=== PATIENT | female | born 1990 | race Caucasian/White ===

== ENCOUNTER 2018-12-31 04:14 | Emergency (ER) | payer MEDICAID ==
[2018-12-31 04:23] VITALS: BP 110/67
[2018-12-31 05:25] LABS: Basophils % (Auto) 0.5 % (0.0-1.8); Eosinophils # (Auto) 0.2 K/mm3 (0.0-0.4); Eosinophils % (Auto) 2.7 % (0.0-4.3); Hematocrit 36.4 % (30.3-42.9); Lymphocytes % (Auto) 21.7 % (13.4-35.0); Mean Corpuscular HGB Conc 33 % (30-34); Mean Corpuscular Volume 83 fl (79-97); Monocytes # (Auto) 0.7 K/mm3 (0.0-0.8); Monocytes % (Auto) 7.4 % (0.0-7.3); Platelet Count 201 K/mm3 (140-440); Red Blood Count 4.39 M/mm3 (3.65-5.03); Red Cell Distribution Width 14.2 % (13.2-15.2)
[2018-12-31 05:37] LABS: Bacteria,Urine 1+ /HPF (Negative); Bilirubin,Urine NEG (Negative); Blood,Urine MOD (Negative); Calcium Oxalate Crystals,Urine 3+; Color,Urine Yellow (Yellow); Mucus,Urine FEW /HPF; Protein,Urine <15 mg/dL mg/dL (Negative)
--- NOTE | 2018-12-31 06:39 | Ultrasound Report ---
PROCEDURE: US OB >= 14 WEEKS FETUS TECHNIQUE: Real-time transabdominal sonography of the uterus, placenta, amniotic fluid, adnexa, and fetus was performed with image documentation. Measurements were obtained to determine age/size. M-mode Doppler was used to document heartbeat. ADDITIONAL GESTATION: None HISTORY: abdominal pain COMPARISONS: None. FINDINGS: MATERNAL: Uterus and cervix: The cervix is closed measures 4 cm in length. Adnexa and ovaries: Not visualized. IUP: Single live intrauterine gestation. Position: Transverse Placental position: Anterior, without previa . Amniotic fluid volume Normal. MIGDALIA was not measured Cardiac activity: Regular rhythm at 156 bpm. ANATOMY: Not evaluated. BIOMETRY: Biparietal diameter: 4.1 cm corresponding to 18 weeks and 3 days. Head circumference: 15.2 cm corresponding to 18 weeks 1 day. abdominal circumference: 13.6 cm corresponding to 19 weeks. Femur length: 2.7 cm corresponding to 19 weeks and 2 days. Ratio biometry: Normal . Estimated Weight: 248 grams +/- grams. ounces +/- .ounces. . percentile. Mean Gestational Age (composite criteria) based on today's measurements: 18 weeks and 3 days. Estimated Due Date (earliest scan): 05/31/2019. IMPRESSION: Single live intrauterine gestation at 18 weeks and 3 days. Estimated due date: 05/31/2019. Limited f etal survey. The amniotic fluid volume is subjectively normal. This document is electronically signed by Ty Palacios MD., December 31 2018 06:36:49 AM ET
--- NOTE | 2018-12-31 08:19 | Emergency Department Report ---
ED Female HPI - General Chief complaint: Abdominal Pain Stated complaint: LOWER ABD PAIN Time Seen by Provider: 12/31/18 08:10 Source: patient Mode of arrival: Ambulatory Limitations: No Limitations - History of Present Illness Initial comments: Patient is 28 years old,non toxic female 5 para 3 with one miscarriage. Patient is 18 weeks . Patient presented to the ER complaining of abdominal pain, crampy in nature started 3 days ago. Patient denied any vaginal bleeding, vaginal discharge. Patient also denied any nausea or vomiting. No fever or chills. Patient stated that she has been diagnosed as UTI by her OB doctor and she is taking antibiotic for it now. MD Complaint: pelvic pain - Related Data Previous Rx's Medication Instructions Recorded Last Taken Type Butalb/Acetamin/Caff 50-325-40 1 tab PO Q6H PRN #20 tablet 10/16/13 01/31/16 Rx [Fioricet] HYDROcodone/APAP 5-325 [[place] 1 each PO Q6HR PRN #20 tablet 02/01/16 Unknown Rx 5/325] Promethazine [Phenergan TAB] 25 mg PO Q6HR PRN #20 tab 02/01/16 Unknown Rx SUMAtriptan succinate [Imitrex] 25 mg PO Q2HR PRN #20 tablet 02/01/16 Unknown Rx Allergies Allergy/AdvReac Type Severity Reaction Status Date / Time bees Allergy Hives Uncoded 08/18/14 21:50 ED Review of Systems ROS: Stated complaint: LOWER ABD PAIN Other details as noted in HPI Comment: All other systems reviewed and negative Constitutional: denies: chills, fever Respiratory: denies: shortness of breath Cardiovascular: denies: chest pain, palpitations Gastrointestinal: abdominal pain. denies: nausea, vomiting, diarrhea, constipation, hematemesis, melena, hematochezia Musculoskeletal: denies: back pain Neurological: denies: headache, weakness ED Past Medical Hx - Past Medical History Previous Medical History?: Yes Hx Headaches / Migraines: Yes - Surgical History Past Surgical History?: Yes Hx Pacemaker: Yes Additional Surgical History: RIGHT BREAST SURGERY - Social History Smoking Status: Never Smoker Substance Use Type: None - Medications Home Medications: Home Medications Medication Instructions Recorded Confirmed Last Taken Type Butalb/Acetamin/Caff 50-325-40 1 tab PO Q6H PRN #20 tablet 10/16/13 02/01/16 01/31/16 Rx [Fioricet] HYDROcodone/APAP 5-325 [[place] 1 each PO Q6HR PRN #20 tablet 02/01/16 Unknown Rx 5/325] Promethazine [Phenergan TAB] 25 mg PO Q6HR PRN #20 tab 02/01/16 Unknown Rx SUMAtriptan succinate [Imitrex] 25 mg PO Q2HR PRN #20 tablet 02/01/16 Unknown Rx ED Physical Exam - General Limitations: No Limitations General appearance: alert, in no apparent distress - Head Head exam: Present: atraumatic, normocephalic, normal inspection - Eye Eye exam: Present: normal appearance - ENT ENT exam: Present: normal exam, normal orophraynx, mucous membranes moist - Neck Neck exam: Present: normal inspection, full ROM. Absent: tenderness, meningismus, lymphadenopathy, thyromegaly - Respiratory Respiratory exam: Present: normal lung sounds bilaterally - Cardiovascular Cardiovascular Exam: Present: regular rate, normal rhythm, normal heart sounds - GI/Abdominal GI/Abdominal exam: Present: soft, normal bowel sounds. Absent: distended, tenderness, guarding, rebound, rigid, organomegaly, mass, bruit, pulsatile mass, hernia - Extremities Exam Extremities exam: Present: normal inspection, full ROM, normal capillary refill - Back Exam Back exam: Present: normal inspection, full ROM. Absent: CVA tenderness (R), CVA tenderness (L) - Neurological Exam Neurological exam: Present: alert, oriented X3, CN II-XII intact, normal gait - Psychiatric Psychiatric exam: Present: normal mood - Skin Skin exam: Present: warm, normal color ED Course Vital Signs 12/31/18 04:22 Temperature 98.0 F Pulse Rate 90 Respiratory 18 Rate Blood Pressure 110/67 O2 Sat by Pulse 100 Oximetry ED Medical Decision Making - Lab Data Result diagrams: 12/31/18 05:06 - Radiology Data Radiology results: report reviewed Referring Physician: ED DOC Patient Name: MELLY BOSE Date of : 1990 Sex: Female Report Date: 2018-12-31 Report Status: Finalized Findings [facility] [address] [place] [address] Ultrasound Report Signed Patient: MELLY BOSE MR#: [id number] : 1990 Acct:[id number] Age/Sex: 28 / F ADM Date: 12/31/18 Loc: ED Attending Dr: Ordering Physician: VENKATESH ARCHULETA MD Date of Service: 12/31/18 Procedure(s): US OB >= 14 weeks Fetus Accession Number(s): [id number] cc: VENKATESH ARCHULETA MD PROCEDURE: US OB >= 14 WEEKS FETUS TECHNIQUE: Real-time transabdominal sonography of the uterus, placenta, amniotic fluid, adnexa, and fetus was performed with image documentation. Measurements were obtained to determine age/size. M-mode Doppler was used to document heartbeat. ADDITIONAL GESTATION: None HISTORY: abdominal pain COMPARISONS: None. FINDINGS: MATERNAL: Uterus and cervix: The cervix is closed measures 4 cm in length. Adnexa and ovaries: Not visualized. IUP: Single live intrauterine gestation. Position: Transverse Placental position: Anterior, without previa . Amniotic fluid volume Normal. MIGDALIA was not measured Cardiac activity: Regular rhythm at 156 bpm. ANATOMY: Not evaluated. BIOMETRY: Biparietal diameter: 4.1 cm corresponding to 18 weeks and 3 days. Head circumference: 15.2 cm corresponding to 18 weeks 1 day. abdominal circumference: 13.6 cm corresponding to 19 weeks. Femur length: 2.7 cm corresponding to 19 weeks and 2 days. Ratio biometry: Normal . Estimated Weight: 248 grams +/- grams. ounces +/- .ounces. . percentile. Mean Gestational Age (composite criteria) based on today's measurements: 18 weeks and 3 days. Estimated Due Date (earliest scan): 05/31/2019. IMPRESSION: Single live intrauterine gestation at 18 weeks and 3 days. Estimated due date: 05/31/2019. Limited survey. The amniotic fluid volume is subjectively normal. This document is electronically signed by Ty Feliciano MD., December 31 2018 06:36:49 AM ET Transcribed By: CO Dictated By: TY FELICIANO MD Electronically Authenticated By: TY FELICINAO MD Signed Date/Time: 12/31/18 0639 DD/ 1 TD/TT: 04/21/19 0613 Critical care attestation.: If time is entered above; I have spent that time in minutes in the direct care of this critically ill patient, excluding procedure time. ED Disposition Clinical Impression: Abdominal pain affecting Disposition: DC-01 TO HOME OR SELFCARE Is pt being admited?: No Condition: Stable Instructions: Abdominal Pain in (ED), Urinary Tract Infection in Women (ED) Referrals: PRIMARY CARE, [Primary Care Provider] - 3-5 Days
== END 2018-12-31 08:48 | disposition home or self-care (01) ==
LOC: ED 04:14
DX: O26.892 Other specified pregnancy related conditions, second trimester (principal); R10.9 Unspecified abdominal pain; R10.2 Pelvic and perineal pain; G43.909 Migraine, unspecified, not intractable, without status migrainosus; Z98.890 Other specified postprocedural states; Z91.030 Bee allergy status; Z3A.18 18 weeks gestation of pregnancy
CPT/HCPCS: 36415; 76805; 81001; 84702; 85025

== ENCOUNTER 2019-01-23 10:09 | Outpatient (CLI) | payer MEDICAID ==
[2019-01-23] MEDS ORDERED: LACTATED RINGERS 500 ML IV ONE (11:12)
== END 2019-01-23 11:50 | disposition still patient (30) ==
LOC: TRG 10:09
PROVIDERS: ATTEND Obstetrics & Gynecology
DX: O47.02 False labor before 37 completed weeks of gestation, second trimester (principal); Z3A.21 21 weeks gestation of pregnancy
CPT/HCPCS: 59025

== ENCOUNTER 2019-01-23 11:58 | Emergency (ER) | payer MEDICAID ==
--- NOTE | 2019-01-23 12:23 | Emergency Department Report ---
Chief Complaint: Dyspnea/Respdistress Stated Complaint: 22WKS/SOB Time Seen by Provider: 01/23/19 12:19 - HPI History of Present Illness: This is a 28 y.o. female that presents to the ER with SOB and cough since last night. Patient is 22 weeks gestation. LMP 08/31/2019, A1 Patient cleared from Labor and delivery [facility]. - Exam Vital Signs: Vital Signs 01/23/19 12:19 Temperature 99.5 F Pulse Rate 102 H Respiratory 18 Rate Blood Pressure 117/73 O2 Sat by Pulse 98 Oximetry MSE screening note: Focused history and physical exam performed. Due to findings the following was ordered: ACC for further evaluation. ED Disposition for MSE Condition: Stable
[2019-01-23] MEDS ORDERED: DUONEB *Not for PRN Use IH ONE ×2 (13:25→17:18)
[2019-01-23 14:31] LABS: Hematocrit 35.4 % (30.3-42.9); Hemoglobin 11.9 gm/dl (10.1-14.3); Mean Corpuscular HGB Conc 34 % (30-34); Mean Corpuscular Volume 83 fl (79-97); Platelet Count 183 K/mm3 (140-440); Red Blood Count 4.25 M/mm3 (3.65-5.03); Red Cell Distribution Width 14.8 % (13.2-15.2)
[2019-01-23 14:54] LABS: BUN/Creatinine Ratio 14; Blood Urea Nitrogen 7 mg/dL (7-17); Calcium 9.1 mg/dL (8.4-10.2); Hemolysis Index 16
[2019-01-23] MEDS ORDERED: TYLENOL PO ONE ×2 (16:40→19:14)
--- NOTE | 2019-01-23 16:57 | Emergency Department Report ---
- General Chief Complaint: Dyspnea/Respdistress Stated Complaint: 22WKS/SOB Time Seen by Provider: 01/23/19 12:19 Source: patient Mode of arrival: Wheelchair Limitations: No Limitations - History of Present Illness Initial Comments: 28-year-old female with history of asthma, 22 weeks , presents to ED with URI symptoms. Patient states since last night, she has had nasal c ongestion, dry cough, wheezing, shortness of breath with exertion. Patient did not use an inhaler prior to coming to the ED. Patient denies pain in lower extremities. Patient denies fever. Reports slight pleuritic chest pain. The patient was seen and cleared by L&D and sent to the ER. MD Complaint: cough, nasal congestion, other (wheezing) -: Last night Severity: moderate Consistency: intermittent Improves With: rest Worsens With: activity Associated Symptoms: rhinorrhea, nasal congestion, cough, chest pain, shortness of breath. denies: fever, chills, headache, nausea, vomiting Treatments Prior to Arrival: none - Related Data Previous Rx's Medication Instructions Recorded Last Taken Type Butalb/Acetamin/Caff 50-325-40 1 tab PO Q6H PRN #20 tablet 10/16/13 01/31/16 Rx [Fioricet] HYDROcodone/APAP 5-325 [[place] 1 each PO Q6HR PRN #20 tablet 02/01/16 Unknown Rx 5/325] Promethazine [Phenergan TAB] 25 mg PO Q6HR PRN #20 tab 02/01/16 Unknown Rx SUMAtriptan succinate [Imitrex] 25 mg PO Q2HR PRN #20 tablet 02/01/16 Unknown Rx ALBUTEROL Inhaler(NF) [VENTOLIN 1 puff IH Q4HR PRN #1 inha 01/23/19 Unknown Rx Inhaler(NF)] Allergies Allergy/AdvReac Type Severity Reaction Status Date / Time shrimp Allergy Unknown Verified 01/23/19 12:01 bees Allergy Intermediate Hives Uncoded 01/23/19 10:12 ED Review of Systems ROS: Stated complaint: 22WKS/SOB Other details as noted in HPI Comment: All other systems reviewed and negative Constitutional: denies: chills, fever ENT: congestion Respiratory: cough, shortness of breath, wheezing Cardiovascular: chest pain Gastrointestinal: denies: abdominal pain Musculoskeletal: other (denies lower extremity pain or swelling) ED Past Medical Hx - Past Medical History Previous Medical History?: Yes Hx Headaches / Migraines: Yes - Surgical History Past Surgical History?: Yes Hx Pacemaker: Yes Additional Surgical History: RIGHT BREAST SURGERY - Social History Smoking Status: Never Smoker Substance Use Type: None - Medications Home Medications: Home Medications Medication Instructions Recorded Confirmed Last Taken Type Butalb/Acetamin/Caff 50-325-40 1 tab PO Q6H PRN #20 tablet 10/16/13 02/01/16 01/31/16 Rx [Fioricet] HYDROcodone/APAP 5-325 [[place] 1 each PO Q6HR PRN #20 tablet 02/01/16 Unknown Rx 5/325] Promethazine [Phenergan TAB] 25 mg PO Q6HR PRN #20 tab 02/01/16 Unknown Rx SUMAtriptan succinate [Imitrex] 25 mg PO Q2HR PRN #20 tablet 02/01/16 Unknown Rx ALBUTEROL Inhaler(NF) [VENTOLIN 1 puff IH Q4HR PRN #1 inha 01/23/19 Unknown Rx Inhaler(NF)] ED Physical Exam - General Limitations: No Limitations ED Course Vital Signs 01/23/19 01/23/19 01/23/19 12:19 16:50 17:30 Temperature 99.5 F 99.2 F Pulse Rate 102 H 118 H 124 H Respiratory 18 16 16 Rate Blood Pressure 117/73 Blood Pressure 116/71 101/71 [Left] O2 Sat by Pulse 98 96 96 Oximetry 01/23/19 01/23/19 01/23/19 18:30 18:58 19:46 Temperature 100.1 F H Pulse Rate 128 H Respiratory 16 Rate Blood Pressure Blood Pressure 97/64 [Left] O2 Sat by Pulse 100 97 Oximetry 01/23/19 01/23/19 01/23/19 19:53 21:01 21:15 Temperature 98.4 F Pulse Rate 129 H 118 H 122 H Respiratory 15 22 20 Rate Blood Pressure 109/63 109/63 Blood Pressure 108/65 [Left] O2 Sat by Pulse 98 96 96 Oximetry 01/23/19 01/23/19 01/23/19 21:45 22:00 22:25 Temperature 98.1 F Pulse Rate 118 H 119 H 108 H Respiratory 29 H 24 18 Rate Blood Pressure 109/63 110/72 Blood Pressure 109/75 [Left] O2 Sat by Pulse 97 99 Oximetry ED Medical Decision Making - Lab Data Result diagrams: 01/23/19 14:14 01/23/19 14:14 - EKG Data -: EKG Interpreted by Me EKG shows normal: sinus rhythm, axis, intervals, QRS complexes, ST-T waves Rate: tachycardia (rate 123) - EKG Data Interpretation: no acute changes - Radiology Data Radiology results: report reviewed, image reviewed - Medical Decision Making 28 yo F, 22wks , with pleuritic chest pain and SOB. Pt reports wheezing, congestion also. Due to state, D-dimer was ordered to r/o PE . D-dimer was elevated. Risks and benefits of CTA Chest explained to patient. Pt agreed to CT. CTA negative for PE. Albuterol treatment given, pt felt much better afterward. Pt also with low-grade temp after CTA was done. Tylenol was given. No infiltrates seen on xray or CT. Likely viral URI w/ asthma exacerbation. Pt tachycardia likely due to combination of fever and albuterol. Improved with IV fluid bolus. Will d/c home with inhaler. Outpt f/u advised. - Differential Diagnosis URI, asthma, pneumonia, PE Critical care attestation.: If time is entered above; I have spent that time in minutes in the direct care of this critically ill patient, excluding procedure time. ED Disposition Clinical Impression: URI (upper respiratory infection), Asthma with acute exacerbation Disposition: TO HOME OR SELFCARE Is pt being admited?: No Condition: Stable Instructions: Asthma (ED), Upper Respiratory Infection (ED) Prescriptions: ALBUTEROL Inhaler(NF) [VENTOLIN Inhaler(NF)] 1 puff IH Q4HR PRN #1 inha PRN Reason: Wheezing Referrals: VANIA MOSER MD [Primary Care Provider] - 3-5 Days PRIMARY CARE, [Referring] - 3-5 Days Time of Disposition: 20:27
--- NOTE | 2019-01-23 17:35 | XRay Report ---
PROCEDURE: XR CHEST 1V AP TECHNIQUE: Chest radiograph single view. HISTORY: cough COMPARISONS: None . FINDINGS: Heart: Normal. Mediastinum/Vessels: Normal. Lungs/Pleural space: Normal. Bony thorax: No acute osseous abnormality. Life support devices: None. IMPRESSION: No acute cardiopulmonary abnormality. This document is electronically signed by Everett Taylor MD., Jan 23 2019 05:33:59 PM ET
[2019-01-23 18:19] LABS: INR 1.03 (0.87-1.13); Partial Thromboplastin Time 26.8 Sec. (24.2-36.6)
--- NOTE | 2019-01-23 20:08 | Cat Scan Report ---
PROCEDURE: CT angiogram chest with contrast. TECHNIQUE: Computerized tomographic angiography of the chest was performed after the IV injection of iodinated nonionic contrast including image processing. The image data was postprocessed using 2-di mensional multiplanar reformatted (MPR) and 3-dimensional (MIP and/or volume rendered) techniques. Au tomated exposure control, adjustment of mA and/or kV according to patient size, or iterative reconstr uction dose optimization techniques were utilized. CT DOSE LENGTH PRODUCT: 623 mGycm HISTORY: Shortness of breath COMPARISONS: None. FINDINGS: The trachea and central bronchi appear normal. The lungs are clear and well expanded. There are no si gns of pneumonia. There are no pleural effusions. The thoracic aorta has a normal caliber without rosanna dence of dissection. The pulmonary arteries enhance normally. There is no evidence of pulmonary embol ism. There is no mediastinal adenopathy. The heart size is normal. The adrenal glands are not enlarge d. The thoracic skeleton appears intact. IMPRESSION: Normal study. This document is electronically signed by Arnel Langley MD., Jan 23 2019 08:06:36 PM ET
[2019-01-23] MEDS ORDERED: NACL 0.9% 1000 ML 1,000 ML IV ONE (20:56)
[2019-01-23 22:27] VITALS: BP 109/75
== END 2019-01-23 22:25 | disposition home or self-care (01) ==
LOC: ED 11:58
DX: O99.512 Diseases of the respiratory system complicating pregnancy, second trimester (principal); J45.901 Unspecified asthma with (acute) exacerbation; J06.9 Acute upper respiratory infection, unspecified; G43.909 Migraine, unspecified, not intractable, without status migrainosus; Z3A.22 22 weeks gestation of pregnancy; Z95.0 Presence of cardiac pacemaker; Z91.030 Bee allergy status; Z91.013 Allergy to seafood
CPT/HCPCS: 36415; 71045; 71275; 80048; 85027; 85379; 85610; 85730; 93005; 93010; 94640; 99285; J7030; Q9967; 59025

== ENCOUNTER 2019-05-25 22:42 | Outpatient (CLI) | payer MEDICAID ==
[2019-05-25 23:00] VITALS: BP 125/69
--- NOTE | 2019-05-26 00:58 | Ultrasound Report ---
Limited OB ultrasound INDICATION: Vaginal bleeding, FINDINGS: There is a single intrauterine . Fetus is in a cephalic presentation. Amniotic fluid index i s 13.1 cm. The placenta is located anteriorly. The placenta is grade 2. There is no previa or abrupti on identified. IMPRESSION: No previa or abruption is identified. Amniotic fluid index is normal. Biophysical profile INDICATION: Vaginal bleeding, FINDINGS: Biophysical profile score is 8 out of 8. There is a score of 2 for breathing movement, score of 2 for movement, score of 2 for fet al posture and tone, and a score of 2 for qualitative amniotic fluid volume. heart rate is 165 bpm. IMPRESSION: Biophysical profile score is 8 out of 8. Signer Name: Familia Calles MD Signed: 05/26/2019 12:54 AM Workstation Name: [id number]
[2019-05-26 02:00] LABS: Bilirubin,Urine NEG (Negative); Blood,Urine SM (Negative); Color,Urine Straw (Yellow); Mucus,Urine FEW /HPF; Protein,Urine <15 mg/dL mg/dL (Negative); Urobilinogen,Urine < 2.0 mg/dL (<2.0)
--- NOTE | 2019-05-26 15:55 | Progress Note ---
Assessment and Plan A: at 39 2/7 weeks gestation. Not in active labor. Reactive NST and BPP 8/8 with normal MIGDALIA. No signs of abruption or previa on US. No active vaginal bleeding noted. Probable vaginal spotting from membrane stripping done at office. P: Patient discharged home with labor precautions and instructions to count movements daily. Warning signs discussed with pt. Rest at home and return promptly if any problems or signs of labor. Subjective - Subjective Date of service: 05/25/19 Principal diagnosis: at 39 2/7 weeks Interval history: 28 year old presents at 39 2/7 weeks with complaint of vaginal spotting after having her membranes stripped in the office yesterday. Patient states the spotting has been light and mixed with mucous; she denies any active vaginal bleeding. Patient denies leaking of water. Patient reports active movement. Patient denies falls or abdominal trauma. Patient denies abdominal pain. Irregular contractions are noted on EFM but patient states she does not feel them; contractions palpate mild and uterus palpates soft between contractions. Patient reports: movement normal, no loss of fluid Objective - Exam Narrative Exam: SSE performed: no pooling, no bleeding. Small amount of off white vaginal discharge with pink-tinged mucous noted on speculum. SVE 3.5/50/- 3/posterior/firm. MIGDALIA 13.1. BPP 8/8. NST reactive. US shows no sign of previa or abruption. Abdomen: Present: normal appearance, soft. Absent: distention, tenderness, guarding, rigidity FHR: category 1 Uterine Contraction Monitor Mode: External Cervical Dilatation: 3.5 Cervical Effacement Percentage: 50 station: -3 Uterine Contraction Pattern: Irregular Uterine Contraction Intensity: Mild Extremities: normal - Labs Labs: Laboratory Results - last 24 hr 05/26/19 01:20 Urine Color Straw Urine Turbidity Clear Urine pH 7.0 Ur Specific [place] 1.004 Urine Protein <15 mg/dl Urine Glucose (UA) Neg Urine Ketones Neg Urine Blood Sm Urine Nitrite Neg Urine Bilirubin Neg Urine Urobilinogen < 2.0 Ur Leukocyte Esterase Tr Urine WBC (Auto) 1.0 Urine RBC (Auto) 1.0 U Epithel Cells (Auto) 3.0 Urine Mucus Few
== END 2019-05-26 02:00 | disposition home or self-care (01) ==
LOC: TRG 22:42
PROVIDERS: ATTEND Obstetrics & Gynecology
DX: O46.93 Antepartum hemorrhage, unspecified, third trimester (principal); Z3A.39 39 weeks gestation of pregnancy
CPT/HCPCS: 59025; 76815; 76819; 81001

== ENCOUNTER 2019-05-27 10:45 | Inpatient (IN) | payer MEDICAID ==
[2019-05-27] MEDS ORDERED: BRETHINE SUB-Q PRN (11:30)
[2019-05-27] MEDS ORDERED: XYLOCAINE 2% INFILTRATI ONE (11:30)
[2019-05-27] MEDS ORDERED: AMPICILLIN/NS 2 GM/100 ML 2 GM/100 ML BAG IV ONE (11:35)
[2019-05-27] MEDS ORDERED: SUBLIMAZE IV PRN (11:35)
--- NOTE | 2019-05-27 11:47 | History and Physical Report ---
History of Present Illness Date of examination: 05/27/19 Date of admission: 05/27/19 Chief complaint: Contractions History of present illness: 28 year old presents with complaint of regular contractions. Denies LOF or VB. Reports active movement. Patient received care at [facility] and was able to view records on computer. LMP 08/31/18. EDC 05/29/19 (based on 8 week, 6 day US). significant for the following: vitamin D deficiency (supplemented with Vitamin D3), GBS positive (GBS bacteriuria), elevated 1 hour sugar test (normal 3 hour OGTT), fundal height high for dates (saw APA and EFW 56th percentile on US). labs are as follows: O+, antibody screen negative, rubella immune, hepatitis B surface antigen negative, HIV negative, RPR nonreactive, HSV 2 negative, varicella immune, hemoglobin electrophoresis normal, elevated 1 hour sugar test (normal 3 hour OGTT), GC negative, CT negative, GBS positive. Past History Past Medical History: asthma (not symptomatic, not on medications), other (history of seizure disorder in the distant past, no current medications, no seizures during ) Past Surgical History: other (arm surgery) [employer] History: denies: abnormal PAP smear, chlamydia, gonorrhea, hepatitis B, hepatitis C, herpes, HIV, syphilis, trichomonas Family/Genetic History: none Social history: lives with family, full code. denies: smoking, alcohol abuse, prescription drug abuse, IV drug use - Obstetrical History Expected Date of Delivery: 05/29/19 Actual Gestation: 39 Week(s) 5 Day(s) : 5 Para: 3 Hx # Term Pregnancies: 3 Number of Pregnancies: 0 Spontaneous Abortions: 1 Induced : 0 Number of Living Children: 3 Medications and Allergies Allergies Allergy/AdvReac Type Severity Reaction Status Date / Time shrimp Allergy Unknown Verified 01/23/19 12:01 bees Allergy Intermediate Hives Uncoded 01/23/19 10:12 Home Medications Medication Instructions Recorded Confirmed Last Taken Type Butalb/Acetamin/Caff 50-325-40 1 tab PO Q6H PRN #20 tablet 10/16/13 02/01/16 01/31/16 Rx [Fioricet] HYDROcodone/APAP 5-325 [[place] 1 each PO Q6HR PRN #20 tablet 02/01/16 Unknown Rx 5/325] Promethazine [Phenergan TAB] 25 mg PO Q6HR PRN #20 tab 02/01/16 Unknown Rx SUMAtriptan succinate [Imitrex] 25 mg PO Q2HR PRN #20 tablet 02/01/16 Unknown Rx ALBUTEROL Inhaler(NF) [VENTOLIN 1 puff IH Q4HR PRN #1 inha 01/23/19 Unknown Rx Inhaler(NF)] Active Meds: Active Medications Ephedrine Sulfate (Ephedrine Sulfate) 10 mg IV Q2M PRN PRN Reason: Hypotension Fentanyl (Sublimaze) 100 mcg IV Q2H PRN PRN Reason: Labor Pain Oxytocin/Sodium Chloride (Pitocin/Ns 20 Unit/1000ml Drip) 20 units in 1,000 mls @ 125 mls/hr IV DIRECT HEATH Lactated Ringer's (Lactated Ringers) 1,000 mls @ 125 mls/hr IV DIRECT HEATH Ampicillin Sodium (Ampicillin/Ns 2 Gm/100 Ml) 2 gm in 100 mls @ 100 mls/hr IV ONCE ONE; Protocol Stop: 05/27/19 12:34 Ampicillin Sodium (Ampicillin/Ns 1 Gm/50 Ml) 1 gm in 50 mls @ 100 mls/hr IV Q4HR HEATH; Protocol Terbutaline Sulfate (Brethine) 0.25 mg SUB-Q ONCE PRN PRN Reason: Hyperstimulation/Hypertonicity Review of Systems All systems: negative (contractions) - Vital Signs Vital signs: Vital Signs Pulse BP 106 H 114/64 05/27/19 11:08 05/27/19 11:08 Temp Pulse Resp BP Pulse Ox 106 H 114/64 05/27/19 11:08 05/27/19 11:08 - Physical Exam Cardiovascular: Regular rate, Normal S1, Normal S2 Lungs: Positive: Clear to auscultation Abdomen: Positive: normal appearance, soft. Negative: distention, tenderness, guarding, rigidity Genitourinary (Female): Positive: normal external genitalia, normal perenium. Negative: perineal/vulvar lesions (no lesions seen on careful exam with bright light upon admission) Vagina: Positive: normal moisture Uterus: Positive: enlarged (s=d) Anus/Rectum: Positive: normal perianal skin Extremities: Positive: normal - Obstetrical FHR: category 1 Uterine Contraction Monitor Mode: External Cervical Dilatation: 7 Cervical Effacement Percentage: 100 station: -1 Uterine Contraction Pattern: Regular Uterine Contraction Intensity: Moderate Results Result Diagrams: 05/27/19 11:40 All other labs normal. Assessment and Plan A: at 39 weeks, 5 days gestation. GBS positive. Active labor. P: Admit. GBS prophylaxis. Continuous EFM. Anticipate vaginal .
[2019-05-27 12:00] LABS: Hematocrit 38.3 % (30.3-42.9); Hemoglobin 12.9 gm/dl (10.1-14.3); Mean Corpuscular HGB Conc 34 % (30-34); Mean Corpuscular Volume 84 fl (79-97); Platelet Count 189 K/mm3 (140-440); Red Blood Count 4.56 M/mm3 (3.65-5.03); Red Cell Distribution Width 15.6 % (13.2-15.2)
[2019-05-27] MEDS ORDERED: PITOCin/NS 20 UNIT/1000ML DRIP 20 UNITS/1,000 ML BAG IV SCH (12:00)
[2019-05-27] MEDS: LACTATED RINGERS 1,000 ML IV SCH ×3 (12:10→15:14)
[2019-05-27] MEDS ORDERED: NARCAN 2 MG/2 ML IV PRN (13:50)
--- NOTE | 2019-05-27 13:57 | Anesthesia Consultation ---
Anesthesia Consult and Med Hx Date of service: 05/27/19 - Airway Anesthetic Teeth Evaluation: Good ROM Head & Neck: Adequate Mental/Hyoid Distance: Adequate Mallampati Class: Class II Intubation Access Assessment: Probably Good - Pulmonary Exam CTA: Yes - Cardiac Exam Cardiac Exam: RRR - Pre-Operative Health Status ASA Pre-Surgery Classification: ASA2 Proposed Anesthetic Plan: Epidural - Pulmonary Hx Asthma: Yes (doesnt use meds, last attack 01/28) Hx Respiratory Symptoms: No SOB: No COPD: No Home Oxygen Therapy: No Hx Pneumonia: No Hx Sleep Apnea: No - Cardiovascular System Hx Hypertension: No Hx Coronary Artery Disease: No Hx Heart Attack/AMI: No Hx Angina: No Hx Percutaneous Transluminal Coronary Angioplasty (PTCA): No Hx Cardia Arrhythmia: No Hx Pacemaker: No Hx Internal Defibrillator: No Hx Valvular Heart Disease: No Hx Heart Murmur: No Hx Peripheral Vascular Disease: No - Central Nervous System Hx Neuromuscular Disorder: No Hx Seizures: Yes (last one 11 years) CVA: No Hx Back Pain: No Hx Psychiatric Problems: No - Gastrointestinal Hx Ulcer: No Hx Gastroesophageal Reflux Disease: No - Endocrine Hx Renal Disease: No Hx End Stage Renal Disease: No Hx Cirrhosis: No Hx Liver Disease: No Hx Insulin Dependent Diabetes: No Hx Non-Insulin Dependent Diabetes: No Hx Thyroid Disease: No Hx Hypothyroidism: No Hx Hyperthyroidism: No - Hematic Hx Anemia: No Hx Sickle Cell Disease: No - Other Systems Hx Alcohol Use: No Hx Substance Use: No Hx Cancer: No Hx Obesity: Yes (BMI 33)
[2019-05-27] MEDS ORDERED: fentaNYL-BUPIV 2 MCG/ML-0.125% 200 MCG/100 ML BAG EPIDURAL SCH (14:00)
[2019-05-27] MEDS ORDERED: METHERGINE IM ONE (14:38)
[2019-05-27] MEDS ORDERED: AMPICILLIN/NS 1 GM/50 ML 1 GM/50 ML BAG IV SCH (15:42)
--- NOTE | 2019-05-27 15:57 | Event Note ---
Date: 05/27/19 Francisco Javier [id number]/-1/BBOW.
[2019-05-27] MEDS ORDERED: TYLENOL PO ONE (17:00)
[2019-05-27] MEDS ORDERED: MILK OF MAGNESIA PO PRN (18:33)
[2019-05-27] MEDS ORDERED: TUCKS PAD TP PRN (18:33)
[2019-05-27] MEDS ORDERED: NORCO 5/325 PO PRN (18:33)
[2019-05-27] MEDS ORDERED: LANSINOH TP PRN (18:33)
[2019-05-27] MEDS ORDERED: SODIUM CHLORIDE FLUSH SYRINGE 10 ML IV NR (19:00)
--- NOTE | 2019-05-27 19:06 | Procedure Note ---
OB Delivery Note - Delivery Date of Delivery: 05/27/19 Surgeon: MANISH CHAVES Estimated blood loss: other (250 cc) - Vaginal Delivery presentation: vertex Delivery position: OA Intrapartum events: meconium Delivery induction: none Delivery monitor: external FHT, external uterine Route of delivery: Delivery placenta: spontaneous Delivery cord: 3 umbilical vessels Episiotomy: none Delivery laceration: 1st degree Delivery repair: vicryl Anesthesia: epidural Delivery comments: Spontaneous vaginal delivery at 18:03 of liveborn male weighing 9 lb. 3 oz. over first degree perineal laceration with apgars of 8/9. Meconium stained amniotic fluid. NICU attended delivery due to meconium. Baby was vigorous and cried immediately after . Baby was placed on mom's chest right away and dried and bulb suctioned. 3 vessel cord double clamped and cut after cessation of pulsation. Cord blood obtained. Spontaneous delivery of intact placenta and membranes by lambert mechanism. EBL 250 cc. Pitocin to IV fluids after delivery of placenta. Fundus firm and midline. First degree perineal laceration repaired with 2-0 vicryl. No other lacerations noted. Vaginal sweep negative. Sponge count correct. Mother and baby stable.
[2019-05-28] MEDS: IBUPROFEN PO SCH ×3 (00:34→18:22)
[2019-05-28 08:25] LABS: Hematocrit 31.3 % (30.3-42.9); Hemoglobin 10.7 gm/dl (10.1-14.3)
--- NOTE | 2019-05-28 10:09 | Progress Note ---
Assessment and Plan - Patient Problems (1) Status post normal vaginal delivery Current Visit: Yes Status: Acute Plan to address problem: PPD 1 - unstable with right calf pain Continue routine orders Anticipate discharge in 24 hours if DVT ruled/out (2) Right calf pain Current Visit: Yes Status: Acute Plan to address problem: Venous doppler ordered stat Subjective - Subjective Date of service: 05/28/19 Principal diagnosis: PPD #1; s/p Interval history: see H&P, Event Note and OB Delivery Procedure Note Patient reports: appetite normal, voiding normally, pain well controlled, ambulating normally, other (c/o right leg numbness initially and later pain in her right calf.), no dizzy ambulation : doing well, nursing well Objective - Vital Signs Latest vital signs: Vital Signs Temp Pulse Resp BP BP Pulse Ox 05/28/19 08:20 98.6 F 80 18 99/60 05/28/19 04:56 98.0 F 77 16 116/61 97 05/27/19 23:47 98.3 F 76 16 106/46 98 05/27/19 22:26 98.1 F 78 18 110/69 97 05/27/19 21:27 86 100/61 05/27/19 21:12 75 118/61 05/27/19 20:57 63 119/67 05/27/19 20:27 93 H 121/63 05/27/19 20:19 67 125/57 05/27/19 19:57 63 120/75 05/27/19 19:42 86 122/61 05/27/19 19:27 78 130/63 05/27/19 19:12 87 126/61 05/27/19 19:09 98.1 F 75 18 118/60 99 05/27/19 19:07 73 118/60 99 05/27/19 18:57 84 123/70 05/27/19 18:42 92 H 129/69 05/27/19 18:33 54 L 78 L 05/27/19 18:30 93 H 100 05/27/19 18:27 89 117/66 05/27/19 18:25 111 H 80 L 05/27/19 18:20 77 100 05/27/19 18:15 89 100 05/27/19 18:12 78 121/65 05/27/19 18:10 83 99 05/27/19 18:05 104 H 99 05/27/19 18:01 107 H 93 05/27/19 17:59 94 H 100 05/27/19 17:58 89 140/71 05/27/19 17:56 26 L 75 L 05/27/19 17:54 80 100 05/27/19 17:49 80 100 05/27/19 17:45 75 100 05/27/19 17:43 81 130/72 05/27/19 17:40 87 100 05/27/19 17:35 73 100 05/27/19 17:30 82 100 05/27/19 17:29 95 H 140/88 05/27/19 17:25 102 H 100 05/27/19 17:19 91 H 100 05/27/19 17:15 78 100 05/27/19 17:13 94 H 123/76 05/27/19 17:09 96 H 99 05/27/19 17:05 95 H 100 05/27/19 17:00 89 100 05/27/19 16:57 83 118/75 05/27/19 16:54 83 100 05/27/19 16:50 88 100 05/27/19 16:45 98 H 100 05/27/19 16:44 91 H 118/75 05/27/19 16:40 87 100 05/27/19 16:35 96 H 100 05/27/19 16:30 100 H 100 05/27/19 16:27 95 H 119/72 05/27/19 16:25 102 H 100 05/27/19 16:20 94 H 100 05/27/19 16:15 92 H 100 05/27/19 16:12 91 H 123/79 05/27/19 16:10 102 H 100 05/27/19 16:07 98.1 F 17 05/27/19 16:05 92 H 100 05/27/19 16:00 85 100 05/27/19 15:58 83 118/65 05/27/19 15:55 89 100 05/27/19 15:54 82 125/75 05/27/19 15:50 95 H 100 05/27/19 15:45 84 100 05/27/19 15:44 94 H 142/106 05/27/19 15:40 89 100 05/27/19 15:35 82 100 05/27/19 15:30 85 100 05/27/19 15:28 79 127/83 05/27/19 15:25 85 100 05/27/19 15:20 93 H 100 05/27/19 15:15 87 100 05/27/19 15:13 75 125/80 05/27/19 15:10 85 100 05/27/19 15:05 83 100 05/27/19 15:00 82 100 05/27/19 14:58 74 128/79 05/27/19 14:55 72 100 05/27/19 14:51 78 94 05/27/19 14:50 70 100 05/27/19 14:45 79 100 05/27/19 14:42 70 116/64 05/27/19 14:40 70 100 05/27/19 14:35 75 100 05/27/19 14:30 75 99 05/27/19 14:28 71 110/62 05/27/19 14:25 74 100 05/27/19 14:20 74 100 05/27/19 14:15 76 100 05/27/19 14:13 72 110/57 05/27/19 14:10 88 100 05/27/19 14:05 82 100 05/27/19 14:00 73 100 05/27/19 13:58 81 108/59 05/27/19 13:55 89 100 05/27/19 13:50 82 100 05/27/19 13:45 80 100 05/27/19 13:41 83 114/57 05/27/19 13:40 99 H 100 05/27/19 13:39 93 H 117/52 05/27/19 13:37 98 H 110/58 05/27/19 13:35 90 109/58 100 05/27/19 13:31 96 H 153/55 05/27/19 13:29 97 H 123/66 100 05/27/19 13:27 106 H 118/75 05/27/19 13:25 111 H 118/73 100 05/27/19 13:23 86 111/63 05/27/19 13:21 100 H 118/61 05/27/19 13:20 98 H 100 05/27/19 13:19 96 H 113/71 05/27/19 13:17 66 105/66 05/27/19 13:15 74 100 05/27/19 13:10 81 100 05/27/19 13:05 98 H 100 05/27/19 12:19 98.2 F 16 05/27/19 11:08 106 H 114/64 Intake and Output 05/27/19 05/28/19 05/28/19 23:59 07:59 15:59 Intake Total 120 Output Total 700 Balance -700 120 Intake: Oral 120 Output: Urine 700 Uretheral (Lopez) 700 Other: Total, Intake Amount 120 # Voids Void 500 Estimated Blood Loss 250 - Exam Cardiovascular: Present: Regular rate Lungs: Present: Clear to auscultation Abdomen: Present: normal appearance, soft Vulva: both: normal Uterus: Present: normal, firm, fundal height at umbilicus Extremities: Present: normal Comments: - positive Homans' Sigs - Scant lochia - Labs Labs: Abnormal lab results 05/27/19 Range/Units 11:40 WBC 11.4 H (4.5-11.0) K/mm3 RDW 15.6 H (13.2-15.2) %
--- NOTE | 2019-05-28 12:04 | Vascular Lab Report ---
DUPLEX DOPPLER LOWER EXTREMITY VEINS, RIGHT INDICATION: Right Calf pain, +Mady's Sign, 1-day . TECHNIQUE: Duplex doppler imaging was performed through the veins of the right lower extremity using venous compression and other maneuvers. COMPARISON: No relevant prior imaging study available. FINDINGS: Right Common femoral vein: Negative. Right Superficial femoral vein: Negative. Right Popliteal vein: Negative. Right Calf veins: Negative. Additional findings: None.. IMPRESSION: No sonographic evidence for DVT in the right lower extremity. Signer Name: Adrian Das Jr, MD Signed: 05/28/2019 12:00 PM Workstation Name: [id number]
[2019-05-29] MEDS: IBUPROFEN PO SCH (00:27)
--- NOTE | 2019-05-29 09:51 | Progress Note ---
Assessment and Plan - Patient Problems (1) Status post normal vaginal delivery Current Visit: Yes Status: Acute Plan to address problem: D/C home today Schedule appt with office for pre-op visit for BTL F/U at office in 6 wks for regular PP visit (2) Right calf pain Current Visit: Yes Status: Acute Plan to address problem: Pain has improved Ambulating without difficulty Negative doppler study, no DVT noted Subjective - Subjective Date of service: 05/29/19 Principal diagnosis: PPD #2; s/p Interval history: See admission H & P, OB delivery summary, and PP progress notes Patient reports: appetite normal, voiding normally, pain well controlled, flatus, ambulating normally [place]: doing well, bottle feeding (and ) Objective - Vital Signs Latest vital signs: Vital Signs Temp Pulse Resp BP 05/29/19 07:35 98.1 F 79 18 92/51 05/29/19 00:00 98.7 F 68 18 114/78 05/28/19 16:46 97.9 F 73 18 98/62 Intake and Output 05/28/19 05/29/19 05/29/19 23:59 07:59 15:59 Intake Total 980 480 Balance 980 480 Intake: Oral 680 480 Intake, Free Water 300 Other: Total, Intake Amount 240 480 # Voids Void 1 - Exam Breasts: Present: normal Cardiovascular: Present: Regular rate Lungs: Present: Normal air movement Abdomen: Present: soft, normal bowel sounds Uterus: Present: firm, fundal height below umbilicus (U-1) Extremities: Present: normal Deep Tendon Reflex Grade: Normal +2 Incision: Present: other (1st degree laceration, healing as expected)
--- NOTE | 2019-05-29 09:58 | Discharge Summary ---
Providers - Providers Date of Admission: 05/27/19 11:51 Date of discharge: 05/29/19 Attending physician: CHERYLE HOLDEN MD Primary care physician: GEENA MCDUFFIE MD Hospitalization Reason for admission: active labor, IUP at term Delivery: Episiotomy: none Laceration: 1st degree (healing as expected) Other procedures: none complications: none Discharge diagnosis: other (S/P ) [place] baby: male Pertinent studies: Negative DVT doppler study Hospital course: See admission H & P, OB delivery summary, and PP progress notes Condition at discharge: Good Disposition: DC-01 TO HOME OR SELFCARE - Discharge Diagnoses (1) Status post normal vaginal delivery Status: Acute (2) Right calf pain Status: Acute Plan - Provider Discharge Summary Activity: routine, no sex for 6 weeks, no heavy lifting 4 weeks, no strenuous exercise Diet: other (Iron rich diet) Instructions: routine Additional instructions: [] Smoking cessation referral if applicable(refer to patient education folder for contact #) [] Refer to [facility] Booklet Call your doctor immediately for: * Fever > 100.5 * Heavy vaginal bleeding ( >1 pad per hour) * Severe persistent headache * Shortness of breath * Reddened, hot, painful area to leg or breast * Drainage or odor from incision. * Keep laceration site clean and dry at all times and follow doctor's instructions regarding bathing/showering - Follow up plan Follow up: GEENA MCDUFFIE MD [Primary Care Provider] - 7 Days
[2019-05-29 14:32] VITALS: BP 115/57
== END 2019-05-29 14:00 | disposition home or self-care (01) | DRG 775 ==
LOC: TRG 10:45 → LD 11:51 → OB 23:15
PROVIDERS: ADMIT Obstetrics & Gynecology; ATTEND Obstetrics & Gynecology
PROC: 10E0XZZ Delivery of Products of Conception, External Approach (ICD-10-PCS; principal; 2019-05-27)
PROC: 0HQ9XZZ Repair Perineum Skin, External Approach (ICD-10-PCS; 2019-05-27)
PROC: 3E0R3BZ Introduction of Anesthetic Agent into Spinal Canal, Percutaneous Approach (ICD-10-PCS; 2019-05-27)
PROC: 00HU33Z Insertion of Infusion Device into Spinal Canal, Percutaneous Approach (ICD-10-PCS; 2019-05-27)
DX: O99.824 Streptococcus B carrier state complicating childbirth (principal); O99.354 Diseases of the nervous system complicating childbirth; O99.52 Diseases of the respiratory system complicating childbirth; O99.214 Obesity complicating childbirth; E66.9 Obesity, unspecified; O77.0 Labor and delivery complicated by meconium in amniotic fluid; O70.0 First degree perineal laceration during delivery; J45.909 Unspecified asthma, uncomplicated; G40.909 Epilepsy, unspecified, not intractable, without status epilepticus; M79.661 Pain in right lower leg; Z3A.39 39 weeks gestation of pregnancy; Z37.0 Single live birth
CPT/HCPCS: 36415; 85014; 85018; 85027; 86850; 86900; 86901; G0378; J0290; J2210; J2590; J3010; J7120

== ENCOUNTER 2020-10-17 10:29 | Day surgery (SDC) | payer MEDICAID ==
--- NOTE | 2020-10-13 12:39 | History and Physical Report ---
History of Present Illness Date of examination: 10/17/20 History of present illness: PT is a 30 yo who desires sterilization. No other issues. PT with h/o epilepsy but no recent seizures. PT is on an epilepsy med but cannot recall the name. BTL papers signed 05/07/20 Past History Past Medical History: asthma, seizure, migraines Past Surgical History: other (arm surgery) Social history: no significant social history - Obstetrical History : 6 Para: 5 Spontaneous Abortions: 1 Number of Living Children: 5 Medications and Allergies Allergies Allergy/AdvReac Type Severity Reaction Status Date / Time shrimp Allergy Angioedema, Verified 10/13/20 15:16 SOB bees Allergy Intermediate Hives Uncoded 10/13/20 15:16 Home Medications Medication Instructions Recorded Confirmed Last Taken Type Albuterol Sulfate [Proventil Hfa] 2 puff IH Q4H PRN 10/13/20 10/13/20 Unknown History Zonisamide 100 mg PO HS 10/13/20 10/13/20 Unknown History Review of Systems All systems: negative (except HPI) - Physical Exam Cardiovascular: Regular rate, No murmurs Lungs: Positive: Clear to auscultation, Normal air movement Abdomen: Positive: normal appearance. Negative: tenderness Genitourinary (Female): Positive: other (deferred to the OR) Results All other labs normal. Assessment and Plan - Patient Problems (1) Sterilization Current Visit: No Status: Acute Plan to address problem: PT is for Lap BTL on 10/17/20. PT fully consented for surgery including the approximately 11/999 risk of BTL failure. PT understands and accepts this. Patient fully consented for the surgery. Risks, benefits, and alternatives were all discussed with the patient including risk of bleeding, infection, and potent ial for injury. Patient understands and accepts these risks. Patient agrees to proceed with surgery. All questions were answered.
[~2020-10-17 10:29] MED LIST: ACETAMINOPHEN 500 MG TAB PO SCH; CELECOXIB 200 MG CAP PO NR; GABAPENTIN 300 MG CAP PO NR; LACTATED RINGERS 1,000 ML IV SCH; MIDAZOLAM 2 MG/2 ML INJ IV NR
[2020-10-17] MEDS ORDERED: BUPIVACAINE/PF (0.5%) 5 MG/1 ML 30 ML VIAL INFILTRATI ONE ×2 (10:58→13:02)
[2020-10-17] MEDS ORDERED: ONDANSETRON 4 MG/2 ML INJ IV PRN (11:29)
--- NOTE | 2020-10-17 11:29 | Anesthesia Consultation ---
Anesthesia Consult and Med Hx Date of service: 10/17/20 - Airway Anesthetic Teeth Evaluation: Good ROM Head & Neck: Adequate Mental/Hyoid Distance: Adequate Mallampati Class: Class I Intubation Access Assessment: Good - Pulmonary Exam CTA: Yes - Cardiac Exam Cardiac Exam: RRR - Pre-Operative Health Status ASA Pre-Surgery Classification: ASA2 Proposed Anesthetic Plan: General - Pulmonary Hx Smoking: No Hx Asthma: Yes (Last albuterol 2018) Hx Respiratory Symptoms: No - Cardiovascular System Hx Hypertension: No - Central Nervous System Hx Seizures: Yes (last seizure 1mo ago; took scheduled anti-seziure med last night) - Endocrine Hx Renal Disease: No Hx Liver Disease: No Hx Insulin Dependent Diabetes: No Hx Non-Insulin Dependent Diabetes: No Hx Thyroid Disease: No - Additional Comments Anesthesia Medical History Comments: Reports possible hx of awareness under anesthesia with previous surgery though unclear if this was GA or MAC.
--- NOTE | 2020-10-17 11:29 | Anesthesia Day of Surgery ---
Anesthesia Day of Surgery - Day of Surgery Patient Examined: Yes Patient H&P Reviewed: Yes Patient is NPO: Yes
[2020-10-17] MEDS ORDERED: LIDOCAINE PF 100 MG/5 ML (CARDIAC SYRINGE) IV ONE (11:33)
[2020-10-17] MEDS ORDERED: dexAMETHasone 20 MG/5 ML VIAL ONE (11:33)
[2020-10-17] MEDS ORDERED: fentaNYL 250 MCG/5 ML INJ ONE (11:33)
[2020-10-17] MEDS ORDERED: ROCURONIUM 50 MG/5 ML INJ IV ONE (11:33)
[2020-10-17] MEDS ORDERED: ONDANSETRON 4 MG/2 ML INJ ONE (11:33)
[2020-10-17] MEDS ORDERED: KETAMINE/STERILE WATER 50 MG/ML SYRINGE ONE (11:34)
[2020-10-17] MEDS ORDERED: propofoL 200 MG/20 ML VIAL IV ONE (11:34)
[2020-10-17] MEDS ORDERED: NEOSTIGMINE 10MG/10 ML INJ MDV ONE (12:58)
[2020-10-17] MEDS ORDERED: GLYCOPYRROLATE 0.4 MG/2 ML INJ ONE (12:58)
[2020-10-17] MEDS ORDERED: SODIUM CHLORIDE 0.9% IRR 1,500 ML BOTTLE IR ONE (13:02)
--- NOTE | 2020-10-17 13:10 | Post Operative Note ---
Date of procedure: 10/17/20 Pre-op diagnosis: Sterilization Post-op diagnosis: same Findings: Normal uterus, tubes, ovaries. General abdominal/pelvic survey was within normal limits. Procedure: Indication: 30-year-old desires sterilization. Procedure: Laparoscopic bilateral tubal ligation. Patient taken the operating room and prepped and draped in usual fashion. Attention was first turned vaginally where single-tooth tenaculum was applied to the anterior lip of the cervix and an acorn uterine manipulator was placed. Attention was now turned abdominally where a 5 mm incision was made in the umbilicus. Veres needle then placed in the abdominal cavity. The abdomen was appropriately insufflated with CO2 gas. Veres needle removed and the 5 mm trocar was placed in abdominal cavity. Placement confirmed with the camera. Attention was turned suprapubically where an 8 mm incision was made and the 8 mm trocar was placed suprapubically in the midline under direct visualization. Trocar placed successfully and without difficulty. Attention was first turned to assess in the abdomen and pelvis. Findings noted above. Attention turned to the tubal ligation where a Filshie clip was applied to each tube. Each clip encompassed the full width of the tube on each side and good hemostasis was noted afterwards on both sides. At this point the abdomen was fully desufflated. Trochars were removed. Trocar sites were closed with 4-0 Vicryl in a subcuticular fashion followed by Marcaine. The acorn uterine manipulator and single-tooth tenaculum were removed. Procedure concluded at this point. Patient tolerated the procedure well. All instrument lap counts were correct. Patient taken to the recovery room in stable condition. Anesthesia: GETA Surgeon: RICHARD MIR Estimated blood loss: minimal Pathology: none Condition: stable Disposition: PACU
--- NOTE | 2020-10-17 13:11 | Short Stay Summary ---
Short Stay Documentation Date of service: 10/17/20 Narrative H&P: Patient here on 10/17/2020 for her scheduled laparoscopic bilateral tubal ligation. Surgery was uncomplicated. Please see H&P and operative report for details. Patient sent home in stable condition with instructions to follow-up in the office 2 weeks postop. - History H&P: dictated Social history: no significant social history - Allergies and Medications Current Medications: Allergies shrimp Allergy (Verified 10/13/20 15:16) Angioedema, SOB bees Allergy (Intermediate, Uncoded 10/13/20 15:16) Hives Home Medications Medication Instructions Recorded Confirmed Last Taken Type Albuterol Sulfate [Proventil Hfa] 2 puff IH Q4H PRN 10/13/20 10/13/20 Unknown History Zonisamide 100 mg PO HS 10/13/20 10/13/20 Unknown History Active Medications Acetaminophen (Acetaminophen 500 Mg Tab) 1,000 mg PO PREOP HEATH Stop: 10/17/20 21:00 Celecoxib (Celecoxib 200 Mg Cap) 200 mg PO PREOP NR Stop: 10/17/20 21:00 Gabapentin (Gabapentin 300 Mg Cap) 300 mg PO PREOP NR Stop: 10/17/20 21:00 Hydromorphone HCl (Hydromorphone 1 Mg/1 Ml Inj) 0.5 mg IV Q10MIN PRN PRN Reason: Pain , Severe (7-10) Stop: 10/17/20 23:00 Lactated Ringer's (Lactated Ringers) 1,000 mls @ 100 mls/hr IV DIRECT HEATH Stop: 10/17/20 23:59 Midazolam HCl (Midazolam 2 Mg/2 Ml Inj) 2 mg IV PREOP NR Stop: 10/17/20 21:00 Ondansetron HCl (Ondansetron 4 Mg/2 Ml Inj) 4 mg IV ONCE PRN PRN Reason: Nausea And Vomiting Stop: 10/17/20 22:00 - Disposition Condition at discharge: Stable Disposition: DC-01 TO HOME OR SELFCARE - Discharge Diagnoses (1) Sterilization Status: Acute Short Stay Discharge Plan Follow up with: CELINE RAMOS MD [Primary Care Provider] - 7 Days
[2020-10-17] MEDS ORDERED: diphenhydrAMINE 50 MG/ML VIAL ONE (13:24)
[2020-10-17] MEDS ORDERED: SODIUM CHLORIDE 0.9% 1000 ML 1,000 ML ONE (13:26)
[2020-10-17] MEDS: HYDROmorphone 1 MG/1 ML INJ IV PRN ×2 (13:45→14:10)
--- NOTE | 2020-10-17 14:43 | Post Anesthesia Evaluation ---
- Post Anesthesia Evaluation Patient Participated: Yes Airway Patent: Yes Stable Respiratory Function: Yes Nausea/Vomiting: No Temp > 96.8F: Yes Pain Manageable: Yes Adequeate Hydration: Yes Anesthesia Complications: No
[2020-10-17 15:40] VITALS: BP 102/68
[2020-10-17] MEDS ORDERED: diphenhydrAMINE 50 MG/ML VIAL IV ONE (15:47)
== END 2020-10-17 10:30 | disposition home or self-care (01) ==
LOC: OR 10:29
PROVIDERS: ATTEND Obstetrics & Gynecology
DX: Z30.2 Encounter for sterilization (principal); G43.909 Migraine, unspecified, not intractable, without status migrainosus; J45.909 Unspecified asthma, uncomplicated; K21.9 Gastro-esophageal reflux disease without esophagitis; Z91.030 Bee allergy status; Z91.013 Allergy to seafood; Z79.899 Other long term (current) drug therapy; Z98.890 Other specified postprocedural states
CPT/HCPCS: 58671; 81025; J1100; J1170; J1200; J2001; J2250; J2405; J2704; J2710; J3010; J3490; J7030; J7120

== ENCOUNTER 2021-09-10 02:21 | Emergency (ER) | payer SELFPAY ==
[2021-09-10] MEDS ORDERED: METOCLOPRAMIDE 10 MG/2 ML INJ IV ONE (07:48)
[2021-09-10] MEDS ORDERED: SODIUM CHLORIDE 0.9% 1000 ML 1,000 ML IV ONE (07:48)
[2021-09-10] MEDS ORDERED: diphenhydrAMINE 50 MG/ML VIAL IV ONE (07:48)
[2021-09-10] MEDS ORDERED: BENZONATATE 100 MG CAP PO ONE (07:53)
[2021-09-10 08:18] LABS: Basophils % (Auto) 0.3 % (0.0-1.8); Eosinophils # (Auto) 0.2 K/mm3 (0.0-0.4); Eosinophils % (Auto) 2.1 % (0.0-4.3); Hematocrit 37.6 % (30.3-42.9); Lymphocytes # (Auto) 2.7 K/mm3 (1.2-5.4); Lymphocytes % (Auto) 34.2 % (13.4-35.0); Mean Corpuscular HGB Conc 32 % (30-34); Mean Corpuscular Volume 81 fl (79-97); Monocytes # (Auto) 0.5 K/mm3 (0.0-0.8); Monocytes % (Auto) 6.5 % (0.0-7.3); Platelet Count 273 K/mm3 (140-440); Red Blood Count 4.66 M/mm3 (3.65-5.03); Red Cell Distribution Width 13.5 % (13.2-15.2)
[2021-09-10 08:43] LABS: INR 0.89 (0.87-1.13)
[2021-09-10 08:48] LABS: Alanine Aminotransferase 16 units/L (7-56); Albumin 3.6 g/dL (3.9-5); Blood Urea Nitrogen 14 mg/dL (7-17); Calcium 8.8 mg/dL (8.4-10.2); Hemolysis Index 3
[2021-09-10 08:52] LABS: BUN/Creatinine Ratio 23
--- NOTE | 2021-09-10 09:49 | Emergency Department Report ---
ED Chest Pain HPI - General Chief Complaint: Headache Stated Complaint: HEADACHE CHEST PAIN Time Seen by Provider: 09/10/21 07:45 Source: patient Mode of arrival: Ambulatory Limitations: No Limitations - History of Present Illness Initial Comments: This is a 31-year-old female nontoxic, well nourished in appearance, no acute signs of distress presents to the ED with c/o of midsternal chest pain, shortness of breath, productive cough, body aches, rhinorrhea nasal congestion x several days. Patient also complaints of headaches started this morning. Stated has history of migraine headaches and symptoms are similar. Patient describes headache as diffuse with level of 3 out of 10. Patient denies thunderclap headache. Patient denies any radiation of pain. Patient denies any head trauma. Patient denies any visual changes. Patient denies worse headache. Patient stated that darkness makes headache better and bright lights make the headache worse. Patient stated she is currently Covid vaccinated. Patient denies any radiation of pain. Patient describes pain as aching with worsened during cough. Patient describes productive cough as yellow mucus production. Patient denies any hemoptysis, fever, chills, nausea, vomiting, headache, stiff neck, numbness, tingling, abdominal pain. Patient denies pleuritic chest pain. Patient denies any recent travels or long car rides. Patient denies any recent surgeries or any sick contacts. Patient denies any calf pain or calf tenderness. Patient denies any recent travels, long car, recent hospital stays. Patient stated allergies to shrimp. Denies any significant past medical history. The patient was evaluated in the emergency department for symptoms described in the history of present illness. He/she was evaluated in the context of the global COVID-19 pandemic, which necessitated consideration that the patient might be at risk for infection with the virus that causes COVID-19. Institutional protocols and algorithms that pertain to the evaluation of patients at risk for COVID-19 are in a state of rapid change based on information released by regulatory bodies including the CDC and federal and state organizations. These policies and algorithms were followed during the patient's care in the emergency department. Please note that these policies, procedures and recommendations changed on a rapid basis. MD Complaint: chest pain -: days(s) Pain Location: substernal Pain Radiation: none Severity: mild Severity scale (0 -10): 3 Quality: aching, sharp Consistency: other (worse with coughing) Improves With: nothing re: denies: nausea, vomting, diaphoresis, dyspnea, sense of impending doom Other Symptoms: cough. denies: fever, syncope, rash, acid taste in mouth, leg swelling, palpitations, burping Treatments Prior to Arrival: none Aspirin use within the Past 7 Days: (0) No - Related Data On Oral Contraceptives: No Home Medications Medication Instructions Recorded Confirmed Last Taken Albuterol Sulfate [Proventil Hfa] 2 puff IH Q4H PRN 10/13/20 10/13/20 Unknown Zonisamide 100 mg PO HS 10/13/20 10/17/20 10/16/20 21:00 Previous Rx's Medication Instructions Recorded Last Taken Type Ibuprofen [Motrin 800 MG tab] 800 mg PO Q8HR PRN #30 tablet 10/17/20 Unknown Rx oxyCODONE /ACETAMINOPHEN [Percocet 1 tab PO Q4HR PRN #20 tab 10/17/20 Unknown Rx 5/325] Acetaminophen [Acetaminophen 8 650 mg PO Q8H PRN #12 tablet.er 09/10/21 Unknown Rx Hour] Benzonatate [Tessalon Perles] 100 mg PO Q8HR PRN #12 capsule 09/10/21 Unknown Rx Allergies Allergy/AdvReac Type Severity Reaction Status Date / Time shrimp Allergy Angioedema, Verified 10/13/20 15:16 SOB bees Allergy Intermediate Hives Uncoded 10/13/20 15:16 Heart Score - HEART Score History: Slightly suspicious EKG: Normal Age: < 45 Risk factors: No known risk factors Troponin: < normal limit HEART Score: 0 - EKG Read Time Time EKG Completed: 07:41 EKG Read Time: 07:47 - Critical Actions Critical Actions: 0-3 pts:0.9-1.7%risk of adverse cardiac event.Candidate for discharge ED Review of Systems ROS: Stated complaint: HEADACHE CHEST PAIN Other details as noted in HPI Comment: All other systems reviewed and negative Constitutional: denies: chills, fever Eyes: denies: eye pain, eye discharge, vision change ENT: congestion. denies: ear pain, throat pain Respiratory: shortness of breath. denies: cough, wheezing Cardiovascular: chest pain. denies: palpitations Endocrine: no symptoms reported Gastrointestinal: denies: abdominal pain, nausea, diarrhea Genitourinary: denies: urgency, dysuria, discharge Musculoskeletal: denies: back pain, joint swelling, arthralgia Skin: denies: rash, lesions Neurological: headache. denies: weakness, paresthesias Psychiatric: denies: anxiety, depression Hematological/Lymphatic: denies: easy bleeding, easy bruising ED Past Medical Hx - Past Medical History Previous Medical History?: Yes Hx Hypertension: No Hx Congestive Heart Failure: No Hx Diabetes: No Hx Deep Vein Thrombosis: No Hx GERD: Yes (Only with ) Hx Liver Disease: No Hx Renal Disease: No Hx Headaches / Migraines: Yes (Migraines) Hx Seizures: Yes (last seizure 1mo ago; took scheduled anti-seziure med last night) Hx Asthma: Yes (Last albuterol 2018) Hx HIV: No - Surgical History Past Surgical History?: Yes Additional Surgical History: RIGHT BREAST SURGERY - Social History Smoking Status: Never Smoker - Medications Home Medications: Home Medications Medication Instructions Recorded Confirmed Last Taken Type Albuterol Sulfate [Proventil Hfa] 2 puff IH Q4H PRN 10/13/20 10/13/20 Unknown History Zonisamide 100 mg PO HS 10/13/20 10/17/20 10/16/20 21:00 History Ibuprofen [Motrin 800 MG tab] 800 mg PO Q8HR PRN #30 tablet 10/17/20 Unknown Rx oxyCODONE /ACETAMINOPHEN [Percocet 1 tab PO Q4HR PRN #20 tab 10/17/20 Unknown Rx 5/325] Acetaminophen [Acetaminophen 8 650 mg PO Q8H PRN #12 tablet.er 09/10/21 Unknown Rx Hour] Benzonatate [Tessalon Perles] 100 mg PO Q8HR PRN #12 capsule 09/10/21 Unknown Rx ED Physical Exam - General Limitations: No Limitations General appearance: alert, in no apparent distress - Head Head exam: Present: atraumatic, normocephalic - Eye Eye exam: Present: normal appearance, PERRL, EOMI - ENT ENT exam: Present: normal exam, normal orophraynx - Neck Neck exam: Present: normal inspection, full ROM. Absent: tenderness, meningismus, lymphadenopathy - Respiratory Respiratory exam: Present: normal lung sounds bilaterally. Absent: respiratory distress, wheezes, rales, rhonchi, stridor, chest wall tenderness, accessory muscle use, decreased breath sounds, prolonged expiratory - Cardiovascular Cardiovascular Exam: Present: regular rate, normal rhythm, normal heart sounds. Absent: bradycardia, tachycardia, irregular rhythm, systolic murmur, diastolic murmur, rubs, gallop - GI/Abdominal GI/Abdominal exam: Present: soft, normal bowel sounds. Absent: distended, tenderness, guarding, rebound, rigid, diminished bowel sounds - Extremities Exam Extremities exam: Present: normal inspection, full ROM, normal capillary refill. Absent: tenderness, pedal edema, joint swelling, calf tenderness - Back Exam Back exam: Present: normal inspection, full ROM. Absent: tenderness, CVA tenderness (R), CVA tenderness (L), muscle spasm, paraspinal tenderness, vertebral tenderness, rash noted - Neurological Exam Neurological exam: Present: alert, oriented X3, normal gait - Expanded Neurological Exam Expanded Patient oriented to: Present: person, place, time Cranial nerves: EOM's Intact: Normal, Facial Sensation: Normal Cerebellar function: Finger to Nose: Normal Upper motor neuron: Pronator Drift: Normal, Sensory Extinction: Normal Motor strength exam: RUE: 5, LUE: 5, RLE: 5, LLE: 5 Best Eye Response ([place]): (4) open spontaneously Best Motor Response ([place]): (6) obeys commands Best Verbal Response ([place]): (5) oriented [place] Total: 15 - Psychiatric Psychiatric exam: Present: normal affect, normal mood - Skin Skin exam: Present: warm, dry, intact, normal color. Absent: rash ED Course Vital Signs 09/10/21 09/10/21 02:25 12:45 Temperature 98.5 F 99.0 F Pulse Rate 69 63 Respiratory 18 18 Rate Blood Pressure 152/99 Blood Pressure 126/86 [Right] O2 Sat by Pulse 100 100 Oximetry - Reevaluation(s) Reevaluation #1: 09/10/21 09:48 Patient is speaking in full sentences with no signs of distress noted. DEWAYNE score - Dewayne Score Age > 65: (0) No Aspirin use within the Past 7 Days: (0) No 3 or more CAD Risk Factors: (0) No 2 or more Angina events in past 24 hrs: (0) No Known CAD with more than 50% Stenosis: (0) No Elevated Cardiac Markers: (0) No ST Deviation Greater than 0.5mm: (0) No DEWAYNE Score: 0 ED Medical Decision Making - Lab Data Result diagrams: 09/10/21 07:58 09/10/21 07:58 Lab Results 09/10/21 09/10/21 09/10/21 Range/Units 07:58 07:58 07:58 WBC 7.8 (4.5-11.0) K/mm3 RBC 4.66 (3.65-5.03) M/mm3 Hgb 12.0 (10.1-14.3) gm/dl Hct 37.6 (30.3-42.9) % MCV 81 (79-97) fl MCH 26 L (28-32) pg MCHC 32 (30-34) % RDW 13.5 (13.2-15.2) % Plt Count 273 (140-440) K/mm3 Lymph % (Auto) 34.2 (13.4-35.0) % [place] % (Auto) 6.5 (0.0-7.3) % Eos % (Auto) 2.1 (0.0-4.3) % Baso % (Auto) 0.3 (0.0-1.8) % Lymph # (Auto) 2.7 (1.2-5.4) K/mm3 [place] # (Auto) 0.5 (0.0-0.8) K/mm3 Eos # (Auto) 0.2 (0.0-0.4) K/mm3 Baso # (Auto) 0.0 (0.0-0.1) K/mm3 Seg Neutrophils % 56.9 (40.0-70.0) % Seg Neutrophils # 4.5 (1.8-7.7) K/mm3 PT 13.1 (12.2-14.9) Sec. INR 0.89 (0.87-1.13) APTT 28.0 (24.2-36.6) Sec. D-Dimer 573.12 H (0-234) ng/mlDDU Sodium 142 (137-145) mmol/L Potassium 3.6 (3.6-5.0) mmol/L Chloride 105.2 (98-107) mmol/L Carbon Dioxide 26 (22-30) mmol/L Anion Gap 14 mmol/L BUN 14 (7-17) mg/dL Creatinine 0.6 (0.6-1.2) mg/dL Estimated GFR > 60 ml/min BUN/Creatinine Ratio 23 % Glucose 95 (65-100) mg/dL Calcium 8.8 (8.4-10.2) mg/dL Total Bilirubin 0.30 (0.1-1.2) mg/dL AST 12 (5-40) units/L ALT 16 (7-56) units/L Alkaline Phosphatase 82 (35-129) units/L Troponin T < 0.010 (0.00-0.029) ng/mL Total Protein 7.1 (6.3-8.2) g/dL Albumin 3.6 L (3.9-5) g/dL Albumin/Globulin Ratio 1.0 % HCG, Qual (Negative) 09/10/21 09/10/21 Range/Units 07:58 10:56 WBC (4.5-11.0) K/mm3 RBC (3.65-5.03) M/mm3 Hgb (10.1-14.3) gm/dl Hct (30.3-42.9) % MCV (79-97) fl MCH (28-32) pg MCHC (30-34) % RDW (13.2-15.2) % Plt Count (140-440) K/mm3 Lymph % (Auto) (13.4-35.0) % [place] % (Auto) (0.0-7.3) % Eos % (Auto) (0.0-4.3) % Baso % (Auto) (0.0-1.8) % Lymph # (Auto) (1.2-5.4) K/mm3 [place] # (Auto) (0.0-0.8) K/mm3 Eos # (Auto) (0.0-0.4) K/mm3 Baso # (Auto) (0.0-0.1) K/mm3 Seg Neutrophils % (40.0-70.0) % Seg Neutrophils # (1.8-7.7) K/mm3 PT (12.2-14.9) Sec. INR (0.87-1.13) APTT (24.2-36.6) Sec. D-Dimer (0-234) ng/mlDDU Sodium (137-145) mmol/L Potassium (3.6-5.0) mmol/L Chloride (98-107) mmol/L Carbon Dioxide (22-30) mmol/L Anion Gap mmol/L BUN (7-17) mg/dL Creatinine (0.6-1.2) mg/dL Estimated GFR ml/min BUN/Creatinine Ratio % Glucose (65-100) mg/dL Calcium (8.4-10.2) mg/dL Total Bilirubin (0.1-1.2) mg/dL AST (5-40) units/L ALT (7-56) units/L Alkaline Phosphatase (35-129) units/L Troponin T < 0.010 (0.00-0.029) ng/mL Total Protein (6.3-8.2) g/dL Albumin (3.9-5) g/dL Albumin/Globulin Ratio % HCG, Qual Negative (Negative) - Radiology Data CTA CHEST WITH IV CONTRAST INDICATION: SOB/CP with elevated d-dimmer 100 ML OMNI 350 . TECHNIQUE: Axial CT images were obtained through the chest after injection of IV contrast. 3 plane MIP reconstructions were produced. All CT scans at this location are performed using CT dose reduction for ALARA by means of automated exposure control. COMPARISON: 01/23/2019 FINDINGS: Pulmonary Arteries: No pulmonary emboli. Lungs: No significant abnormality. Trachea and Bronchi: No significant abnormality. Heart and Pericardium: No significant abnormality. Vasculature: No significant abnormality. Lymphatics: No lymphadenopathy. Additional Findings: None. Upper Abdomen: No acute findings. Skeletal Structures: No acute findings or aggressive bone lesions. IMPRESSION: 1. No CT evidence for pulmonary embolism. 2. No acute findings. Signer Name: Grey Fuller MD Signed: 09/10/2021 9:46 AM Workstation Name: [employer] CHEST 2 VIEWS INDICATION / CLINICAL INFORMATION: Chest Pain. COMPARISON: One view of the chest from 01/23/2019. FINDINGS: SUPPORT DEVICES: None. HEART / MEDIASTINUM: No significant abnormality. LUNGS / PLEURA: No significant pulmonary abnormality. No significant pleural effusion. No pneumothorax. ADDITIONAL FINDINGS: No significant additional findings. IMPRESSION: 1. No acu te abnormality of the chest. Signer Name: Stef Esqueda MD Signed: 09/10/2021 8:49 AM Workstation Name: [id number] - Medical Decision Making This is a 38-year-old male that presents with chest pain and left muscular leg pain. Patient is stable and was examined by me. DEWAYNE and HEART score 0 pints. EKG normal sinus rhythm with no significant changes in ST. Chest xray/CTA dictated by the radiologist. PAtient is notified of the report with no questions noted. Labs within normal limits. Negative troponin x2. Patient received treatment in the ED which stated symptoms are improving subsided. Patient also stated headache has subsided. Patient does meet clinical concerns of COVID-19 and patient was instructed and educated on signs and symptoms and to self qu arantine and seek medical attention as soon as possible if symptoms worsen. Patient was instructed to increase hydration, rest and take Motrin for fever episodes. Patient received motrin and tesslone perrls in the ED. Vitals stable. Patient is nonfebrile and normal heart rate. Patient was instructed to Follow-up with a primary care/terminal operator doctor in 2 days or if symptoms worsen and continue return to emergency room as soon as possible. At time of discharge, the patient does not seem toxic or ill in appearance. No acute signs of distress noted. Patient agrees to discharge treatment plan of care. No further questions noted by the patient. Critical care attestation.: If time is entered above; I have spent that time in minutes in the direct care of this critically ill patient, excluding procedure time. ED Disposition Clinical Impression: Suspected COVID-19 virus infection, Shortness of breath Chest pain, unspecified Qualifiers: Chest pain type: unspecified Qualified Code(s): R07.9 - Chest pain, unspecified Headache Qualifiers: Headache type: unspecified Headache chronicity pattern: episodic headache Intractability: not intractable Qualified Code(s): R51.9 - Headache, unspecified Disposition: 01 HOME / SELF CARE / HOMELESS Is pt being admited?: No Does the pt Need Aspirin: No Condition: Stable Instructions: COVID-19 Frequently Asked Questions, Shortness of Breath, Adult, [id number], Nonspecific Chest Pain, Adult Additional Instructions: Follow-up with a primary care/terminal operator doctor in 2 days or if symptoms worsen and continue return to emergency room as soon as possible. Your symptoms appear consistent with COVID-19. Despite your previous negative COVID-19 test, I do recommend repeat outpatient Covid 19 testing. In the meantime, isolate/quarantine yourself and stay away from anyone who is elderly, immunocompromised or chronically ill. Please see your nearest health department or primary care doctor that you are referred to for COVID testing. Increased rest, hydration, and take [id number] Tylenol as directed from instructions label for pain/fever episode. Prescriptions: Acetaminophen [Acetaminophen 8 Hour] 650 mg PO Q8H PRN #12 tablet.er PRN Reason: pain/fever Benzonatate [Tessalon Perles] 100 mg PO Q8HR PRN #12 capsule PRN Reason: Cough Referrals: ESEQUIEL NUNES MD [Staff Physician] - 2-3 Days SEBASTIEN PURVIS MD [Staff Physician] - 2-3 Days PRIMARY CARE, [Primary Care Provider] - 2-3 Days Time of Disposition: 12:27
--- NOTE | 2021-09-10 09:54 | XRay Report ---
CHEST 2 VIEWS INDICATION / CLINICAL INFORMATION: Chest Pain. COMPARISON: One view of the chest from 01/23/2019. FINDINGS: SUPPORT DEVICES: None. HEART / MEDIASTINUM: No significant abnormality. LUNGS / PLEURA: No significant pulmonary abnormality. No significant pleural effusion. No pneumothora x. ADDITIONAL FINDINGS: No significant additional findings. IMPRESSION: 1. No acute abnormality of the chest. Signer Name: Stef Esqueda MD Signed: 09/10/2021 9:49 AM Workstation Name: [id number]
--- NOTE | 2021-09-10 10:51 | Cat Scan Report ---
CTA CHEST WITH IV CONTRAST INDICATION: SOB/CP with elevated d-dimmer 100 ML OMNI 350 . TECHNIQUE: Axial CT images were obtained through the chest after injection of IV contrast. 3 plane MIP reconstru ctions were produced. All CT scans at this location are performed using CT dose reduction for ALARA b y means of automated exposure control. COMPARISON: 01/23/2019 FINDINGS: Pulmonary Arteries: No pulmonary emboli. Lungs: No significant abnormality. Trachea and Bronchi: No significant abnormality. Heart and Pericardium: No significant abnormality. Vasculature: No significant abnormality. Lymphatics: No lymphadenopathy. Additional Findings: None. Upper Abdomen: No acute findings. Skeletal Structures: No acute findings or aggressive bone lesions. IMPRESSION: 1. No CT evidence for pulmonary embolism. 2. No acute findings. Signer Name: Grey Fuller MD Signed: 09/10/2021 10:46 AM Workstation Name: [id number]
[2021-09-10 12:46] VITALS: BP 126/86
--- NOTE | 2021-09-11 11:40 | Electrocardiograph Report ---
[facility] Test Date: 2021-09-10 Test Time: 07:41:42 Pat Name: MELLY BOSE Department: Room: Gender: F Dean Of Student Services: MINNIE : [id number] Requested By: DUY MASCORRO Order Number: [id number] Reading MD: Pollo Enamorado Measurements Intervals [place] Rate: 55 P: 47 MO: 169 QRS: 46 QRSD: 104 T: 41 QT: 431 QTc: 413 Interpretive Statements Sinus bradycardia,otherwise unremarkable. No previous ECG available for comparison Electronically Signed On 09-11-2021 11:40:20 EST by Pollo Enamorado
== END 2021-09-10 12:46 | disposition home or self-care (01) ==
LOC: ED 02:21
DX: R07.9 Chest pain, unspecified (principal); R51.9 Headache, unspecified; R06.02 Shortness of breath; G43.909 Migraine, unspecified, not intractable, without status migrainosus; J45.909 Unspecified asthma, uncomplicated
CPT/HCPCS: 36415; 71046; 71275; 80053; 84484; 84703; 85025; 85379; 85610; 85730; 93005; 96361; 96374; 96375; 99284; J1200; J2765; J7030; Q9967; Q0162